=== PATIENT | male | born 1965 | race Caucasian/White ===

== ENCOUNTER 2017-02-23 07:02 | Day surgery (SDC) | payer OTHER ==
[~2017-02-23] VITALS: Ht 177.8 cm; Wt 81.8 kg
[~2017-02-23 07:02] MED LIST: ACETAMINOPHEN 325 MG TABLET PO PRN; ADAL40KI INJ; MOXIFLOXACIN HCL 0.5% 3 ML OPHTHALMIC SOLUTION OD ONE; MOXIFLOXACIN HCL 0.5% 3 ML OPHTHALMIC SOLUTION ONE; MitoMYcin 0.2 MG/VIAL KIT FOR OPHTHALMIC USE OD ONE; RINGERS SOLUTION,LACTATED 500 ML IV ONE; SIMV-260 PO; TETRACAINE HCL/PF 0.5% 4 ML OPHTHALMIC SOLUTION OD ONE; TETRACAINE HCL/PF 0.5% 4 ML OPHTHALMIC SOLUTION ONE
[2017-02-23] MEDS ORDERED: MIDAZOLAM HCL 2 MG/2 ML VIAL IVP ONE (07:03)
[2017-02-23] MEDS ORDERED: FentaNYL CITRATE-PF 100 MCG/2 ML VIAL IVP ONE (07:03)
[2017-02-23] MEDS ORDERED: LIDOCAINE HCL 2%/EPI 1:200,000/PF 10 ML VIAL INJ ONE (07:03)
[2017-02-23] MEDS ORDERED: POVIDONE-IODINE 10% 15 ML SOLUTION UD TP ONE (07:03)
[2017-02-23] MEDS ORDERED: PrednisoLONE ACETATE 1% 5 ML OPHTHALMIC SUSPENSION OS ONE (07:03)
[2017-02-23] MEDS ORDERED: NEOMYCIN/POLYMYXIN B/DEXAMETH 3.5 GM OPHTHALMIC OINTMENT OS ONE (07:03)
[2017-02-23] MEDS ORDERED: LIDOCAINE HCL/PF 2% 5 ML VIAL IM ONE (07:03)
[2017-02-23] MEDS ORDERED: LIDOCAINE HCL 2%/EPI 1:200,000/PF 10 ML VIAL ONE (07:40)
== END 2017-02-23 10:00 | disposition home or self-care (01) ==
LOC: SURGERY 07:02
PROVIDERS: ATTEND Ophthalmology
DX: H18.891 Other specified disorders of cornea, right eye (principal); M41.9 Scoliosis, unspecified; L40.50 Arthropathic psoriasis, unspecified; Z72.89 Other problems related to lifestyle; Z87.891 Personal history of nicotine dependence
CPT/HCPCS: 65400; 88304; J2250; J3010; J3490 ×2; J7120